=== PATIENT | female | born 2000 | race Hispanic/Latino ===

== ENCOUNTER 2020-06-18 | Emergency (ER) | payer OTHER ==
[~2020-06-18] MED LIST: AMOXIL400 MG/5 M PO
[2020-06-18 16:50] LABS: HEMATOCRIT 37.4 % (37.0-47.0); MEAN CORPUSCULAR HGB 27.3 pG CALC (26.0-32.0); MEAN CORPUSCULAR HGB CONC 30.7 g/dL CAL (32.0-36.0); NEUT# 4.7 thou/uL (2.00-7.15); RED BLOOD COUNT 4.22 mill/uL (4.20-5.60); RED CELL DISTRI WIDTH 13.4 % (11.5-15.5)
[2020-06-18 16:53] LABS: URINE BILIRUBIN - DIPSTICK NEGATIVE (NEGATIVE); URINE BLOOD DIPSTICK TRACE-LYSED (NEGATIVE); URINE COLOR YELLOW; URINE GLUCOSE - DIPSTICK NEGATIVE (NEGATIVE); URINE KETONE NEGATIVE (NEGATIVE); URINE LEUK ESTERASE TRACE (NEGATIVE); URINE PH 5.5 (4.5-8.0); URINE PROTEIN - DIPSTICK NEGATIVE (NEG-TRACE); URINE SPECIFIC GRAVITY >=1.030; URINE UROBILINOGEN - DIPSTICK 0.2 E.U./dL (0.2)
[2020-06-18 16:58] LABS: URINE NITRITE - DIPSTICK NEGATIVE (Negative)
[2020-06-18 17:00] LABS: HCG SERUM/URINE (NEG/POS) NEGATIVE (NEGATIVE); HEMOGLOBIN 11.5 g/dl (12.0-16.0); MEAN CELL VOLUME 88.6 fL CALC (80.0-100.0)
[2020-06-18 17:01] LABS: ANION GAP 10 (6-22 (CALC)); BUN 20 mg/dL (7-17); BUN/CREATININE RATIO 41 (12-20 (CALC)); CARBON DIOXIDE 29 mmol/l (22-30); CHLORIDE 102 mmol/l (95-108); CREATININE 0.5 mg/dL (0.5-1.0); GFR > 60 ML/MIN (>=60 (CALC)); GFR FOR AFR.AMER. > 60 ML/MIN (>=60 (CALC)); POTASSIUM 3.7 mmol/l (3.5-5.1); SGOT/AST 55 u/l (14-36); SODIUM 138 mmol/l (137-146); TOTAL PROTEIN 8.3 g/dL (6.3-8.2)
[2020-06-18 17:04] LABS: ALKALINE PHOSPHATASE 68 u/l (38-126); BILIRUBIN, TOTAL 0.6 mg/dL (0.0-1.4)
[2020-06-18] MEDS ORDERED: COMBIVIR 1501 COMBO PO (17:28)
[2020-06-18] MEDS ORDERED: CRIXIVAN400 MG PO (17:28)
== END 2020-06-18 17:48 | disposition home or self-care (01) | DRG 605 ==
PROVIDERS: Emergency Medicine
DX: S61.231A Puncture wound without foreign body of left index finger without damage to nail, initial encounter (principal); W46.1XXA Contact with contaminated hypodermic needle, initial encounter; Y93.F9 Activity, other caregiving; Y92.89 Other specified places as the place of occurrence of the external cause; Y99.0 Civilian activity done for income or pay

== ENCOUNTER 2022-01-31 13:46 | Emergency (ER) | payer OTHER ==
[~2022-01-31] VITALS: Ht 154.9 cm; Wt 70.0 kg
[~2022-01-31 13:46] MED LIST changes: +COMBIVIR 1501 COMBO PO; +CRIXIVAN400 MG PO
[2022-01-31 13:57] VITALS: BP 112/68
[2022-01-31 14:00] VITALS: BP 115/70
[2022-01-31 14:15] VITALS: BP 106/69
[2022-01-31 14:19] LABS: HEMATOCRIT 37.8 % (37.0-47.0); HEMOGLOBIN 12.2 g/dl (12.0-16.0); MEAN CELL VOLUME 86.5 fL CALC (80.0-100.0); MEAN CORPUSCULAR HGB 27.9 pG CALC (26.0-32.0); MEAN CORPUSCULAR HGB CONC 32.3 g/dL CAL (32.0-36.0); NEUT# 2.94 thou/uL (2.00-7.15); RED BLOOD COUNT 4.37 mill/uL (4.20-5.60); RED CELL DISTRI WIDTH 14.5 % (11.5-15.5)
[2022-01-31 14:30] VITALS: BP 105/63
[2022-01-31 14:38] LABS: ALBUMIN 4.8 g/dL (3.2-5.0); ALKALINE PHOSPHATASE 75 u/l (38-126); ANION GAP 12 (6-22 (CALC)); BUN 20 mg/dL (7-17); BUN/CREATININE RATIO 43 (12-20 (CALC)); CARBON DIOXIDE 27 mmol/l (22-30); CHLORIDE 105 mmol/l (95-108); CREATININE 0.5 mg/dL (0.5-1.0); GFR FOR AFR.AMER. > 60 ML/MIN (>=60 (CALC)); GFR OTHER RACES > 60 ML/MIN (>=60 (CALC)); POTASSIUM 4.1 mmol/l (3.5-5.1); SGOT/AST 29 u/l (14-36); SODIUM 140 mmol/l (137-146); TOTAL PROTEIN 7.9 g/dL (6.3-8.2)
[2022-01-31 14:42] LABS: BILIRUBIN, TOTAL 0.3 mg/dL (0.0-1.4)
== END 2022-01-31 14:40 | disposition home or self-care (01) | DRG 951 ==
LOC: ED 13:46
PROVIDERS: Physician Assistant Surgical
DX: Z77.21 Contact with and (suspected) exposure to potentially hazardous body fluids (principal)